=== PATIENT | male | born 1990 | race Caucasian/White ===

== ENCOUNTER 2017-03-24 17:42 | Emergency (ER) | payer BC ==
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
[2017-03-24 18:24] VITALS: BP 116/62
== END 2017-03-24 18:33 | disposition home or self-care (01) ==
LOC: UCCORT 17:42
DX: H10.9 Unspecified conjunctivitis (principal); S00.12XA Contusion of left eyelid and periocular area, initial encounter; Y08.89XA Assault by other specified means, initial encounter; Y93.9 Activity, unspecified; Y92.9 Unspecified place or not applicable; Y99.9 Unspecified external cause status; Z72.0 Tobacco use
CPT/HCPCS: 99202; G0463